=== PATIENT | female | born 2000 | race American Indian/Alaskan Native ===

== ENCOUNTER 2019-08-25 16:04 | Outpatient (CLI) | payer MEDICAID, OTHER ==
[2019-08-25] MEDS ORDERED: LACTATED RINGERS 1,000 ML IV ONE (17:05)
[2019-08-25] MEDS ORDERED: NIFEdipine*For Tocolysis only* 10 MG CAPSULE PO ONE (19:37)
[2019-08-25 21:31] VITALS: BP 111/59
== END 2019-08-25 22:08 | disposition home or self-care (01) ==
LOC: TRG 16:04
PROVIDERS: ATTEND Obstetrics & Gynecology
DX: O62.9 Abnormality of forces of labor, unspecified (principal); O26.893 Other specified pregnancy related conditions, third trimester; R10.2 Pelvic and perineal pain; Z3A.34 34 weeks gestation of pregnancy
CPT/HCPCS: 59025; J7120; Q0177

== ENCOUNTER 2019-08-29 13:18 | Outpatient (CLI) | payer OTHER ==
[2019-08-29] MEDS ORDERED: LACTATED RINGERS 500 ML IV ONE (13:24)
[2019-08-29 13:56] VITALS: BP 118/69
[2019-08-29] MEDS ORDERED: TERBUTALINE 1 MG/1 ML INJ SUB-Q ONE (17:30)
--- NOTE | 2019-08-29 17:51 | Ultrasound Report ---
US OB limited INDICATION / CLINICAL INFORMATION: RICHA. COMPARISON: None available. FINDINGS: A viable single intrauterine gestation is demonstrated in the cephalic presentation. heart rate is 152 beats per The RICHA is normal, 15. IMPRESSION: 1. Normal amniotic fluid volume Signer Name: eLeroy Mckeon MD Signed: 08/29/2019 5:47 PM Workstation Name: [id number]
== END 2019-08-29 18:18 | disposition home or self-care (01) ==
LOC: TRG 13:18
PROVIDERS: ATTEND Obstetrics & Gynecology
DX: O47.03 False labor before 37 completed weeks of gestation, third trimester (principal); Z3A.35 35 weeks gestation of pregnancy
CPT/HCPCS: 76815; J3105